=== PATIENT | female | born 1970 | race Caucasian/White ===

== ENCOUNTER → 2023-10-27 09:42 | Outpatient (CLI) | payer BC, SELFPAY ==
--- NOTE | ~2023-10-27 | CT_ITS ---
EXAMINATION: CT sinus wo con DATE: 10/27/2023 10:07 INDICATION: Chronic pansinusitis TECHNIQUE: Computed tomography (CT) of the paranasal sinuses was performed without intravenous contra st. The dose-length product (DLP) was 281.78 mGy-cm. Iterative reconstruction was used. COMPARISON: None FINDINGS: There is normal development and pneumatization of the paranasal sinuses. The frontal sinuse s are clear. There is near complete opacification of the ethmoidal air cells. There is trace opacific ation anteriorly in the sphenoid sinuses. The left maxillary sinus is nearly completely opacified. Th e caudal half of the right maxillary sinus is opacified. The left ostiomeatal unit is occluded. There is near complete occlusion of the right ostiomeatal unit. Visualized soft tissues are unremarkable. IMPRESSION: 1. Sinusitis as detailed above. Reviewed, dictated and finalized at location [facility]. [facility] [employer]
== END ==
PROVIDERS: PCP Otolaryngology; Visit Provider Otolaryngology
DX: J32.4 Chronic pansinusitis (principal)
CPT/HCPCS: 70486